=== PATIENT | male | born 1960 | race Caucasian/White ===

== ENCOUNTER 2018-06-05 22:11 | Inpatient (IN) | payer OTHER, MEDICAID ==
[~2018-06-05] VITALS: Ht 167.6 cm; Wt 81.2 kg
[2018-06-06] MEDS ORDERED: ASPIRIN 81MG TABLET PO ONE (04:30)
[2018-06-06] MEDS ORDERED: NITROGLYCERIN 0.4MG TABLET SL SL PRN ×2 (04:30→11:45)
[2018-06-06 04:57] LABS: BASOPHILS % 0.6 % (0.0-2.0); EOSINOPHILS % 5.6 % (0.0-5.0); HEMATOCRIT. 37.1 % (42.0-52.0); HEMOGLOBIN. 12.4 g/dL (14.0-18.0); LYMPHOCYTES % 9.4 % (20.0-50.0); MEAN CORPUSCULAR HEMOGLOBIN 29.9 pg (28.0-32.0); MEAN CORPUSCULAR VOLUME 89.2 fL (80.0-94.0); MEAN PLATELET VOLUME 7.8 fl (7.4-10.4); MONOCYTES % 5.6 % (2.0-8.0); NEUTROPHILS % 78.8 % (40.0-76.0); PLATELET 256 x1000/uL (130-400); RED BLOOD CELL COUNT 4.15 mill/uL (4.7-6.1); RED CELL DISTRIBUTION WIDTH 13.9 % (11.6-14.6)
[2018-06-06 05:00] LABS: CHLORIDE 104 mEq/L (98-107)
[2018-06-06] MEDS ORDERED: KETOROLAC 30MG/ML VIAL IV ONE (05:30)
[2018-06-06] MEDS ORDERED: CEPHALEXIN 250MG CAPSULE PO ONE (05:45)
[2018-06-06] MEDS ORDERED: ENOXAPARIN 40MG/0.4ML SYR SUBCUT SCH (06:27)
[2018-06-06] MEDS ORDERED: GUAIFENESIN 200MG/10ML SUGAR FREE UDC PO PRN (11:45)
[2018-06-06] MEDS ORDERED: IPRATROPIUM/ALBUTEROL 0.5-3(2.5)MG/3ML NEB INH PRN (11:45)
[2018-06-06] MEDS ORDERED: NA PHOS,M-B/NA PHOS,DI-BA ENEMA 118ML PR PRN (11:45)
[2018-06-06] MEDS ORDERED: ZOLPIDEM TARTRATE 5MG TABLET PO PRN (11:45)
[2018-06-06] MEDS ORDERED: ACETAMINOPHEN 325MG TABLET PO PRN (11:45)
[2018-06-06] MEDS ORDERED: ONDANSETRON HCL 4MG/2ML INJ IV PRN (11:45)
[2018-06-06] MEDS ORDERED: LORAZEPAM 0.5MG TABLET PO PRN (11:45)
[2018-06-06] MEDS ORDERED: DOCUSATE SODIUM 100MG CAPSULE PO PRN (11:45)
[2018-06-06] MEDS ORDERED: CLONIDINE 0.1MG TABLET PO PRN (11:45)
[2018-06-06] MEDS ORDERED: MAGNESIUM/ALUMINUM HYDROXIDE/SIMETHICONE 30ML UDC PO PRN (11:45)
[2018-06-06 11:52] VITALS: BP 120/58
[2018-06-06] MEDS ORDERED: GABA-531 MT (11:52)
[2018-06-06] MEDS ORDERED: OMEP20TA2 MT (11:52)
[2018-06-06] MEDS ORDERED: NAPR-681 MT (11:52)
[2018-06-06] MEDS ORDERED: ALLO300T2 MT (11:52)
[2018-06-06] MEDS ORDERED: ASPI-1158 MT (11:52)
[2018-06-06] MEDS ORDERED: METF-414 MT (11:52)
[2018-06-06 12:00] VITALS: BP 115/62
[2018-06-06 15:41] LABS: CREATINE KINASE 132 IU/L (39-308); CREATINE KINASE MB FRACTION 2.6 ng/mL (0.5-3.6)
[2018-06-06 16:00] VITALS: BP 105/56
[2018-06-06] MEDS: KETOROLAC 15MG/ML VIAL IV PRN ×2 (16:55→22:44)
[2018-06-06] MEDS ORDERED: ENOXAPARIN 80MG/0.8ML SYR SUBCUT SCH (18:00)
[2018-06-06 20:00] VITALS: BP 113/61
[2018-06-06 20:37] LABS: *AMPHETAMINES SCREEN URINE NEGATIVE (NEGATIVE); *BARBITURATES SCREEN URINE NEGATIVE (NEGATIVE); *BENZODIAZEPINES SCREEN URINE NEGATIVE (NEGATIVE); *COCAINE SCREEN URINE NEGATIVE (NEGATIVE); CANNABINOID URINE SCREEN NEGATIVE (NEGATIVE); METHADONE URINE SCREEN NEGATIVE (NEGATIVE); OPIATES URINE SCREEN NEGATIVE (NEGATIVE); PHENCYCLIDINE URINE SCREEN NEGATIVE (NEGATIVE)
[2018-06-06] MEDS: FAMOTIDINE 20MG TABLET PO SCH (21:30)
[2018-06-07] VITALS: BP 105/65
[2018-06-07 00:22] LABS: CREATINE KINASE 103 IU/L (39-308); CREATINE KINASE MB FRACTION 1.4 ng/mL (0.5-3.6)
[2018-06-07 04:00] VITALS: BP 110/61
[2018-06-07 08:00] VITALS: BP 100/53
[2018-06-07] MEDS: FAMOTIDINE 20MG TABLET PO SCH (08:28)
[2018-06-07] MEDS ORDERED: ASPIRIN 325MG EC TABLET PO SCH (09:00)
[2018-06-07] MEDS ORDERED: ENOXAPARIN 40MG/0.4ML SYR SUBCUT SCH (09:00)
[2018-06-07 12:00] VITALS: BP 129/63
[2018-06-07 16:00] VITALS: BP 111/61
[2018-06-07 17:46] VITALS: BP 111/61
== END 2018-06-07 18:30 | disposition home or self-care (01) | DRG 203 ==
LOC: ER 22:11 → 5WST 06-06 06:04 → ENRESERV 06-06 09:49
PROVIDERS: ADMIT Internal Medicine; ATTEND Internal Medicine
DX: R07.89 Other chest pain (principal); E44.0 Moderate protein-calorie malnutrition; E83.51 Hypocalcemia; E83.52 Hypercalcemia; I10 Essential (primary) hypertension; M19.90 Unspecified osteoarthritis, unspecified site; R73.03 Prediabetes; Z68.28 Body mass index [BMI] 28.0-28.9, adult; Z79.899 Other long term (current) drug therapy
CPT/HCPCS: 36415; 71045; 80061; 80305; 82550; 82553; 83036; 83880; 84484; 93005; 93970; 96374; 99285; J1650; J1885